=== PATIENT | female | born 1950 | race Asian ===

== ENCOUNTER 2016-03-17 17:49 | Emergency (ER) | payer MEDICARE, BC ==
[~2016-03-17] VITALS: Ht 157.5 cm; Wt 58.2 kg
[2016-03-17 17:53] VITALS: BP 168/97
[2016-03-17] MEDS ORDERED: CLOR7.5T5 PO (17:57)
[2016-03-17] MEDS ORDERED: BUPR100 PO (17:57)
[2016-03-17] MEDS ORDERED: RISP1 PO (17:57)
[2016-03-17] MEDS ORDERED: MIRT15 PO (17:57)
[2016-03-17 19:07] LABS: BASOPHILS % (AUTO) 1.5 % (0.0-2.0); EOSINOPHILS % (AUTO) 0.9 % (1.0-6.0); HEMATOCRIT 41.1 % (36-46); HEMOGLOBIN 13.7 g/dL (12.0-16.0); LYMPHOCYTES # (AUTO) 0.6 K/uL (1.0-4.8); MEAN CORPUSCULAR HEMOGLOBIN 29.2 pg (26.0-34.0); MEAN CORPUSCULAR HGB CONC 33.4 G/dL (31.0-37.0); MEAN CORPUSCULAR VOLUME 87 fL (80-100); MONOCYTES # (AUTO) 0.2 K/uL (0.1-1.0); MONOCYTES % (AUTO) 5.7 % (2.0-9.0); NEUTROPHILS # (AUTO) 3.4 K/uL (1.8-7.7); NEUTROPHILS % (AUTO) 77.9 % (40.0-70.0); PLATELET COUNT (AUTO) 216 K/uL (150-450); RED CELL DISTRIBUTION WIDTH 12.6 % (11.5-14.5)
[2016-03-17 19:08] LABS: ANION GAP 5 mmol/L (8-16); CALCIUM, TOTAL 9.2 mg/dL (8.8-10.5); CARBON DIOXIDE 30 mmol/L (22-29); CHLORIDE 104 mmol/L (98-107); CREATININE 0.66 mg/dL (0.60-1.30); GLOMERULAR FILTR. RATE CALC > 60 mL/min (>60); POTASSIUM 3.7 mmol/L (3.5-5.1); SODIUM SERUM 139 mmol/L (136-145); UREA NITROGEN, BLOOD 12 mg/dL (7-18)
[2016-03-17 19:10] LABS: WHITE BLOOD COUNT (AUTO) 5.8 K/uL (4.5-11.0)
== END 2016-03-17 21:11 | disposition left against medical advice (07) ==
LOC: EMS 17:52
DX: R11.2 Nausea with vomiting, unspecified (principal); Z53.21 Procedure and treatment not carried out due to patient leaving prior to being seen by health care provider
CPT/HCPCS: 99281